=== PATIENT | female | born 1965 | race American Indian/Alaskan Native ===

== ENCOUNTER 2017-01-27 16:05 | Emergency (ER) | payer SELFPAY ==
--- NOTE | 2017-01-27 16:52 | Emergency Department Report ---
Chief Complaint: Nausea/Vomiting/Diarrhea Stated Complaint: VOMITING/DIARRHEA/BODY ACHES Time Seen by Provider: 01/27/17 16:43 - HPI History of Present Illness: PT reports multiple symptoms since Wednesday. PT c/o c/c/c, sore throat (feels dry from pollen), abd pain, and chest pressure. - ROS Review of Systems: + chest pressure - sob + diarrhea/ abd cramps - Exam Vital Signs: Vital Signs 01/27/17 16:41 Temperature 97.8 F Pulse Rate 103 H Respiratory 22 Rate Blood Pressure 105/63 O2 Sat by Pulse 100 Oximetry Physical Exam: obese female, no acute distress abd soft and non tender at this time. MSE screening note: Focused history and physical exam performed. Due to findings the following was ordered: ekg, xr, labs ED Disposition for MSE Condition: Stable
[2017-01-27 18:43] LABS: Alanine Aminotransferase 12 units/L (7-56); Albumin 3.5 g/dL (3.9-5); Albumin/Globulin Ratio 1.1 %; Alkaline Phosphatase 65 units/L (35-129); Anion Gap 16 mmol/L; BUN/Creatinine Ratio 6.25; Bilirubin,Total 0.4 mg/dL (0.1-1.2); Blood Urea Nitrogen 5 mg/dL (7-17); Calcium 8.4 mg/dL (8.4-10.2); Carbon Dioxide 25 mmol/L (22-30); Chloride 99.9 mmol/L (98-107); Glucose 116 mg/dL (65-100); Lipase 24 units/L (13-60); Potassium 4.5 mmol/L (3.6-5.0); Sodium 136 mmol/L (137-145); Total Protein 6.8 g/dL (6.3-8.2)
[2017-01-27 18:45] LABS: Eosinophils % (Auto) 0.5 % (0.0-4.3); Hematocrit 29.5 % (30.3-42.9); Hemoglobin 8.4 gm/dl (10.1-14.3); Mean Corpuscular HGB Conc 29 % (30-34); Mean Corpuscular Hemoglobin 19 pg (28-32); Mean Corpuscular Volume 65 fl (79-97); Platelet Count 344 K/mm3 (140-440); Red Blood Count 4.57 M/mm3 (3.65-5.03); Red Cell Distribution Width 19.5 % (13.2-15.2); White Blood Count 4.2 K/mm3 (4.5-11.0)
[2017-01-28] MEDS ORDERED: PEPCID IV ONE (03:28)
[2017-01-28] MEDS ORDERED: TORADOL IV ONE (03:28)
[2017-01-28] MEDS ORDERED: NACL 0.9% 1000 ML 1,000 ML IV ONE (03:28)
[2017-01-28] MEDS ORDERED: ZOFRAN IV ONE (03:28)
--- NOTE | 2017-01-28 04:38 | Cat Scan Report ---
FINAL REPORT PROCEDURE: CT ABDOMEN PELVIS WO CON TECHNIQUE: Computerized axial tomography of the abdomen and pelvis was performed without intravenous contrast. This study is performed without intravascular contrast material and its sensitivity for abdominal and pelvic pathology, including neoplasms, inflammation, abscess, free fluid, thrombosis, arterial dissection and infarction, is reduced compared with a contrast enhanced study. HISTORY: n,v,d fever COMPARISON: No prior studies are available for comparison. FINDINGS: Visualized lower thorax: No significant abnormality. Liver: Normal size and attenuation. There are calcifications in the right lobe of the liver suggesting old granulomas. Spleen: Normal size and attenuation. Gallbladder and biliary system: Normal. Pancreas: Normal. Adrenals: Normal. Kidneys: There are no kidney stones or ureteral stones. There is no hydronephrosis.. GI tract: There is no bowel obstruction, colitis or enteritis. The appendix is normal.. Lymph nodes and mesentery: Normal. Vasculature: Normal. Bladder: Normal. Reproductive organs: Uterine fundus is enlarged measuring 10 x 12 centimeters suggesting underlying fibroid. The ovaries are unremarkable. Peritoneum: There is no ascites, free air, abscess or adenopathy.. Musculoskeletal structures: No significant abnormality. Other: None. IMPRESSION: There are calcifications in the right lobe of the liver suggesting old granulomas. There are no kidney stones or ureteral stones. There is no hydronephrosis.. There is no bowel obstruction, colitis or enteritis. The appendix is normal.. Uterine fundus is enlarged measuring 10 x 12 centimeters suggesting underlying fibroid. The ovaries are unremarkable. There is no ascites, free air, abscess or adenopathy.. .
--- NOTE | 2017-01-28 05:09 | Emergency Department Report ---
ED N/V/D HPI - General Chief complaint: Nausea/Vomiting/Diarrhea Stated complaint: VOMITING/DIARRHEA/BODY ACHES Time Seen by Provider: 01/27/17 16:43 Source: patient Mode of arrival: Ambulatory Limitations: No Limitations - History of Present Illness Initial comments: 51-year-old female with a past medical history of GERD, uterine fibroids, spinal stenosis, anemia, and no previous abdominal surgical history presents to the hospital with complaints of nausea, vomiting, diarrhea, bodyaches, fever, cough and congestion 4 days. Patient will average vomits 2-3 times daily but no vomiting today. Patient is having significant diarrhea. She denies melena, hematochezia, hematemesis, sick contacts, or recent travel. MAXIMUM TEMPERATURE 101 at home and complains of fever intermittently. Patient complains of cough productive of clear sputum and chest tightness and pain with coughing episodes. Pain overall rated 8/10 intensity and worsened movement and palpation. She did not receive a flu shot this season. - Related Data Previous Rx's Medication Instructions Recorded Last Taken Type Famotidine [Pepcid] 20 mg PO BID #20 tablet 01/28/17 Unknown Rx Ferrous Sulfate [Feosol 325 MG tab] 325 mg PO QDAY #30 tablet 01/28/17 Unknown Rx Loperamide [Imodium] 2 mg PO Q2HR PRN #20 capsule 01/28/17 Unknown Rx Ondansetron [Zofran Odt] 4 mg PO Q8HR PRN #20 tab.rapdis 01/28/17 Unknown Rx traMADol [Ultram 50 MG tab] 50 mg PO Q6HR PRN #20 tablet 01/28/17 Unknown Rx Allergies Allergy/AdvReac Type Severity Reaction Status Date / Time Iodinated Contrast Media - AdvReac Rash Verified 01/28/17 03:52 IV Dye Penicillins AdvReac Unknown Verified 01/28/17 03:52 tomato AdvReac Unknown Verified 01/28/17 03:52 ED Review of Systems ROS: Stated complaint: VOMITING/DIARRHEA/BODY ACHES Other details as noted in HPI Comment: All other systems reviewed and negative Other: Constitutional: As per HPI Eyes: No eye pain visual changes ENT: No ear pain or throat pain Neck: Denies pain Respiratory: As per HPI Cardiovascular: Denies chest pain, palpitations, syncope GI: As per HPI : Denies dysuria Musculoskeletal: Generalized myalgias Skin: Denies rash, lesions, erythema Neurologic: Denies headache, numbness, weakness Psychiatric: Denies suicidal ideation, hallucinations ED Past Medical Hx - Past Medical History Hx Congestive Heart Failure: No Hx Diabetes: No Hx GERD: Yes Hx Asthma: No Hx COPD: No Hx HIV: No Additional medical history: Anemia, spinal stenosis, obesity, fibroids - Surgical History Past Surgical History?: No - Social History Smoking Status: Never Smoker Substance Use Type: Alcohol - Medications Home Medications: Home Medications Medication Instructions Recorded Confirmed Last Taken Type Famotidine [Pepcid] 20 mg PO BID #20 tablet 01/28/17 Unknown Rx Ferrous Sulfate [Feosol 325 MG tab] 325 mg PO QDAY #30 tablet 01/28/17 Unknown Rx Loperamide [Imodium] 2 mg PO Q2HR PRN #20 capsule 01/28/17 Unknown Rx Ondansetron [Zofran Odt] 4 mg PO Q8HR PRN #20 tab.rapdis 01/28/17 Unknown Rx traMADol [Ultram 50 MG tab] 50 mg PO Q6HR PRN #20 tablet 01/28/17 Unknown Rx ED Physical Exam - General Limitations: No Limitations - Other Other exam information: General: No limitations, patient is alert in no acute distress Head exam: Atraumatic, normocephalic Eyes exam: Normal appearance, pupils equal reactive to light, nonicteric sclerae ENT: Dry mucous membrane Neck exam: Normal inspection, full range of motion Respiratory exam: Clear to auscultation bilateral, no wheezes, rales, crackles Cardiovascular: Normal rate and rhythm, normal heart sounds. Increased heart rate noticed was sitting up in bed Abdomen: Soft, nondistended, lower abdominal tenderness, with normal bowel sounds, no rebound, or guarding Extremity: Full range of motion normal inspection no deformity Back: Normal Inspection, full range of motion, no tenderness Neurologic: Alert, oriented x3, cranial nerves intact, no motor or sensory deficit Psychiatric: normal affect, normal mood Skin: Warm, dry, intact ED Course Vital Signs 01/27/17 01/28/17 01/28/17 16:41 02:53 02:59 Temperature 97.8 F 98.6 F Pulse Rate 103 H 94 H 97 H Respiratory 22 22 20 Rate Blood Pressure 105/63 105/61 Blood Pressure 105/61 [Left] O2 Sat by Pulse 100 100 100 Oximetry 01/28/17 01/28/17 01/28/17 03:00 03:10 03:20 Temperature Pulse Rate 87 88 90 Respiratory 11 L 14 21 Rate Blood Pressure 105/61 119/66 119/66 Blood Pressure [Left] O2 Sat by Pulse 100 97 98 Oximetry 01/28/17 01/28/17 01/28/17 03:30 03:40 03:50 Temperature Pulse Rate 88 86 84 Respiratory 16 14 12 Rate Blood Pressure 119/66 127/73 Blood Pressure [Left] O2 Sat by Pulse 99 100 98 Oximetry 01/28/17 01/28/17 01/28/17 04:16 04:20 04:30 Temperature Pulse Rate 86 Respiratory 15 14 Rate Blood Pressure 127/73 112/61 132/68 Blood Pressure [Left] O2 Sat by Pulse 97 97 98 Oximetry 01/28/17 01/28/17 01/28/17 04:40 04:50 05:00 Temperature Pulse Rate 84 87 79 Respiratory 13 13 12 Rate Blood Pressure 132/68 132/68 114/62 Blood Pressure [Left] O2 Sat by Pulse 100 98 97 Oximetry 01/28/17 01/28/17 05:10 05:20 Temperature Pulse Rate 90 79 Respiratory 16 14 Rate Blood Pressure 114/62 114/62 Blood Pressure [Left] O2 Sat by Pulse 98 98 Oximetry - Reevaluation(s) Reevaluation #1: 01/28/17 05:08 Patient treated with Zofran, Toradol, Pepcid, and 1 L normal saline. ED Medical Decision Making - Lab Data Result diagrams: 01/27/17 18:12 01/27/17 18:12 Lab Results 01/27/17 01/27/17 Range/Units 18:12 18:12 WBC 4.2 L (4.5-11.0) K/mm3 RBC 4.57 (3.65-5.03) M/mm3 Hgb 8.4 L (10.1-14.3) gm/dl Hct 29.5 L (30.3-42.9) % MCV 65 L (79-97) fl MCH 19 L (28-32) pg MCHC 29 L (30-34) % RDW 19.5 H (13.2-15.2) % Plt Count 344 (140-440) K/mm3 Lymph % (Auto) 37.6 H (13.4-35.0) % Hardeman % (Auto) 11.1 H (0.0-7.3) % Eos % (Auto) 0.5 (0.0-4.3) % Baso % (Auto) 1.0 (0.0-1.8) % Lymph # 1.6 (1.2-5.4) K/mm3 Hardeman # 0.5 (0.0-0.8) K/mm3 Eos # 0.0 (0.0-0.4) K/mm3 Baso # 0.0 (0.0-0.1) K/mm3 Seg Neutrophils % 49.8 (40.0-70.0) % Seg Neutrophils # 2.1 (1.8-7.7) K/mm3 Sodium 136 L (137-145) mmol/L Potassium 4.5 (3.6-5.0) mmol/L Chloride 99.9 (98-107) mmol/L Carbon Dioxide 25 (22-30) mmol/L Anion Gap 16 mmol/L BUN 5 L (7-17) mg/dL Creatinine 0.8 (0.7-1.2) mg/dL Estimated GFR > 60 ml/min BUN/Creatinine Ratio 6.25 % Glucose 116 H (65-100) mg/dL Calcium 8.4 (8.4-10.2) mg/dL Total Bilirubin 0.4 (0.1-1.2) mg/dL AST 28 (5-40) units/L ALT 12 (7-56) units/L Alkaline Phosphatase 65 (35-129) units/L Troponin T < 0.010 (0.00-0.029) ng/mL Total Protein 6.8 (6.3-8.2) g/dL Albumin 3.5 L (3.9-5) g/dL Albumin/Globulin Ratio 1.1 % Lipase 24 (13-60) units/L - EKG Data -: EKG Interpreted by Me (nsr [id number]) - EKG Data When compared to previous EKG there are: no significant change (compared to 02/22) - Radiology Data Radiology results: report reviewed (CT abdomen and pelvis noncontrast: No acute findings. Uterine fibroids. See report for incidental findings) - Medical Decision Making Patient's chronic anemia anemia likely secondary to iron deficiency given her low MCV. Patient's hemoglobin is stable compared to previous visits. CT does not show any acute infectious or surgical emergency. Chest x-ray is negative. Patient will be treated for viral syndrome symptomatically. Outpatient follow- up will be encouraged. flu neg - Differential Diagnosis gastroenteritis, influenza, pneumonia, diverticulitis, appendicitis Critical Care Time: No Critical care attestation.: If time is entered above; I have spent that time in minutes in the direct care of this critically ill patient, excluding procedure time. ED Disposition Clinical Impression: Iron deficiency anemia, Gastroenteritis, Viral syndrome Disposition: DISCHARGED TO HOME OR SELFCARE Is pt being admited?: No Does the pt Need Aspirin: No Condition: Stable Instructions: Gastroenteritis (ED), Viral Syndrome (ED), Iron Deficiency Anemia (ED) Additional Instructions: Take medications as prescribed. Return if symptoms worsen. Follow-up with the doctor or clinic provide Prescriptions: Famotidine [Pepcid] 20 mg PO BID #20 tablet Ferrous Sulfate [Feosol 325 MG tab] 325 mg PO QDAY #30 tablet Loperamide [Imodium] 2 mg PO Q2HR PRN #20 capsule PRN Reason: Diarrhea Ondansetron [Zofran Odt] 4 mg PO Q8HR PRN #20 tab.rapdis PRN Reason: Nausea And Vomiting traMADol [Ultram 50 MG tab] 50 mg PO Q6HR PRN #20 tablet PRN Reason: Pain Referrals: [facility] [Provider Group] - 3-5 Days (Primary care clinic) NISREEN SERRANO MD [Staff Physician] - 3-5 Days (Primary care doctor) Time of Disposition: 05:39
[2017-01-28 05:35] VITALS: BP 114/62
--- NOTE | 2017-01-28 07:26 | XRay Report ---
ROUTINE CHEST, TWO VIEWS: HISTORY: chest pain. The trachea, heart, mediastinal contour, lung su and bony thorax are unremarkable. IMPRESSION: Unremarkable chest x-ray. No significant change since 03/17/16.
== END 2017-01-28 06:01 | disposition home or self-care (01) ==
LOC: ED 16:05
DX: K52.89 Other specified noninfective gastroenteritis and colitis (principal); D50.9 Iron deficiency anemia, unspecified; B34.9 Viral infection, unspecified; K21.9 Gastro-esophageal reflux disease without esophagitis; Z88.0 Allergy status to penicillin; Z91.018 Allergy to other foods; Z88.8 Allergy status to other drugs, medicaments and biological substances
CPT/HCPCS: 36415; 71020; 74176; 80053; 83690; 84484; 85025; 87400; 93005; 93010; 96361; 96374; 96375; 99284; J1885; J2405; J7030

== ENCOUNTER 2018-04-06 06:07 | Observation (INO) | payer OTHER ==
--- NOTE | 2018-03-31 12:40 | Anesthesia Consultation ---
Anesthesia Consult and Med Hx Date of service: 04/06/18 - Airway Anesthetic Teeth Evaluation: Chipped ROM Head & Neck: Inadequate Mental/Hyoid Distance: Adequate Mallampati Class: Class III Intubation Access Assessment: Possibly Difficult - Pulmonary Exam CTA: Yes - Cardiac Exam Cardiac Exam: RRR - Pre-Operative Health Status ASA Pre-Surgery Classification: ASA3 Proposed Anesthetic Plan: General Nerve Block: TAP - Pulmonary Hx Smoking: Yes (Former) Hx Asthma: No COPD: No Hx Pneumonia: No Hx Sleep Apnea: Yes (Not severe enough for a CPAP) - Central Nervous System Hx Back Pain: Yes (Cervical spinal stenosis; Sciatica R hip) Hx Psychiatric Problems: No - Gastrointestinal Hx Gastroesophageal Reflux Disease: Yes - Endocrine Hx End Stage Renal Disease: No - Hematic Hx Anemia: Yes - Other Systems Hx Alcohol Use: Yes (occas) Hx Cancer: No Hx Obesity: Yes
[2018-03-31 12:54] LABS: Basophils # (Auto) 0.1 K/mm3 (0.0-0.1); Basophils % (Auto) 1.2 % (0.0-1.8); Eosinophils # (Auto) 0.1 K/mm3 (0.0-0.4); Eosinophils % (Auto) 1.3 % (0.0-4.3); Hemoglobin 8.8 gm/dl (10.1-14.3); Lymphocytes # (Auto) 2.1 K/mm3 (1.2-5.4); Lymphocytes % (Auto) 29.8 % (13.4-35.0); Mean Corpuscular HGB Conc 29 % (30-34); Monocytes # (Auto) 0.5 K/mm3 (0.0-0.8); Monocytes % (Auto) 7.9 % (0.0-7.3); Platelet Count 485 K/mm3 (140-440); Red Blood Count 4.42 M/mm3 (3.65-5.03); Red Cell Distribution Width 18.7 % (13.2-15.2)
[2018-03-31 12:55] LABS: Mean Corpuscular Hemoglobin 20 pg (28-32); Mean Corpuscular Volume 68 fl (79-97)
[2018-03-31 14:22] LABS: BUN/Creatinine Ratio 17; Blood Urea Nitrogen 10 mg/dL (7-17); Calcium 8.4 mg/dL (8.4-10.2); Hemolysis Index 1
[2018-04-06] MEDS ORDERED: NACL 0.9% 500 ML 500 ML IV ONE (06:44)
--- NOTE | 2018-04-06 06:53 | History and Physical Report ---
History of Present Illness Date of examination: 04/06/18 Date of admission: 04/06/2018 Chief complaint: leiomyoma History of present illness: 53y/o with abnormal uterine bleeding and dysmenorrhea secondary to leiomyoma. The patient has anemia secondary to her menorrhagia. Pelvic ultrasound demonstrates findings of 4 myomas with the largest being 5cm. She has elected for surgical management. Past History Past Medical History: other (anemia; leiomyoma) Past Surgical History: other (BTL) Social history: single - Obstetrical History : 4 Para: 2 Hx # Term Pregnancies: 2 Spontaneous Abortions: 2 Number of Living Children: 2 Medications and Allergies Allergies Allergy/AdvReac Type Severity Reaction Status Date / Time Penicillins Allergy Swelling Verified 03/31/18 10:24 Iodinated Contrast- Oral and AdvReac Rash Verified 03/31/18 15:53 IV Dye tomato AdvReac Unknown Verified 03/31/18 15:53 Home Medications Medication Instructions Recorded Confirmed Last Taken Type Ferrous Sulfate [Feosol 325 MG tab] 325 mg PO QDAY #30 tablet 01/28/17 03/31/18 Unknown Rx Acetaminophen/Codeine [Tylenol 1 tab PO Q6H PRN 03/31/18 03/31/18 Unknown History /Codeine # 3 tab] Cyclobenzaprine [Flexeril] 10 mg PO TID PRN 03/31/18 03/31/18 Unknown History Ranitidine HCl [Zantac 150 MG TAB] 150 mg PO DAILY 03/31/18 03/31/18 Unknown History Active Meds: Active Medications Clindamycin HCl (Cleocin 600 Mg/50 Ml) 600 mg in 50 mls @ 100 mls/hr IV PREOP ANA; Protocol Gentamicin Sulfate 160 mg/ (Sodium Chloride) 104 mls @ 200 mls/hr IV PREOP ANA ; Protocol Review of Systems All systems: negative Genitourinary: vaginal bleeding, pelvic pain - Vital Signs Vital signs: Vital Signs Temp Pulse Resp BP 98.5 F 84 18 144/82 03/31/18 12:10 03/31/18 12:10 03/31/18 12:10 03/31/18 12:10 Temp Pulse Resp BP Pulse Ox 98.5 F 84 18 144/82 03/31/18 12:10 03/31/18 12:10 03/31/18 12:10 03/31/18 12:10 - Physical Exam Breasts: Positive: deferred Cardiovascular: Regular rate Lungs: Positive: Clear to auscultation Abdomen: Positive: normal appearance Results Result Diagrams: 03/31/18 12:20 03/31/18 12:20 All other labs normal. Assessment and Plan - Patient Problems (1) Leiomyoma Current Visit: Yes Status: Acute Plan to address problem: scheduled for a robotic hysterectomy and BSO (2) Iron deficiency anemia Current Visit: No Status: Acute (3) Menorrhagia Current Visit: No Status: Chronic
[2018-04-06] MEDS ORDERED: GARAMYCIN 160 MG in NACL 0.9% 100 ML IV NR (07:00)
[2018-04-06] MEDS ORDERED: CLEOCIN 600 MG/50 mL 600 MG/50 ML BAG IV SCH (07:00)
[2018-04-06] MEDS ORDERED: VERSED IV NR (07:33)
[2018-04-06] MEDS ORDERED: SUBLIMAZE IV NR (07:33)
[2018-04-06] MEDS ORDERED: NACL 0.9% 1000 ML 1,000 ML IV SCH (07:34)
[2018-04-06] MEDS ORDERED: DIPRIVAN 10 MG/ML IV ONE (07:40)
[2018-04-06] MEDS ORDERED: SUBLIMAZE ONE (07:40)
[2018-04-06] MEDS ORDERED: ZOFRAN ONE (07:42)
[2018-04-06] MEDS ORDERED: DECADRON ONE (07:42)
[2018-04-06] MEDS ORDERED: NEOSTIGMINE ONE (07:42)
[2018-04-06] MEDS ORDERED: ZEMURON IV ONE (07:42)
[2018-04-06] MEDS ORDERED: ROBINUL ONE ×2 (07:42)
[2018-04-06] MEDS ORDERED: BRETHINE ONE (07:42)
[2018-04-06] MEDS ORDERED: XYLOCAINE MPF 2% ONE (07:42)
[2018-04-06] MEDS ORDERED: THROMBIN (BOVINE) TP ONE ×2 (07:46→09:30)
[2018-04-06] MEDS ORDERED: GELFOAM POWDER 1GM MM ONE ×2 (07:46→09:30)
[2018-04-06] MEDS ORDERED: NEOSPORIN GU IR ONE ×2 (07:47→09:30)
[2018-04-06] MEDS ORDERED: QUELICIN ONE (08:00)
[2018-04-06] MEDS ORDERED: NACL 0.9% IR ONE ×2 (09:30)
[2018-04-06] MEDS ORDERED: NARCAN 0.4 MG/1 ML IV PRN (10:00)
[2018-04-06] MEDS ORDERED: MORPHINE PCA 30MG/30ML IV SCH (10:00)
--- NOTE | 2018-04-06 10:00 | Operative Report ---
Operative Report Operative Report: Date of surgery: 04/06/2018 Preoperative diagnoses: Symptomatic uterine fibroids; menorrhagia; iron deficiency anemia Postoperative diagnoses: Same as above Procedure: Robotic hysterectomy and bilateral salpingo-oophorectomy Surgeon: Lia Griggs M.D. Glass Cutting Machine Feeder: Shayla Mcdermott Anesthesia: Gen. endotracheal anesthesia Estimated blood loss: 50 mL Pathology: Uterus, cervix, leiomyomas, bilateral tubes and ovaries Indication: 53-year-old 0-2 with a history of symptomatic uterine fibroids. The patient is experienced significant dysfunctional uterine bleeding that is subsequently contributing to her iron deficiency anemia. Patient was transfused 1 unit of packed red cells blood cells preoperatively. Procedure: The patient was taken to the operating room and given general endotracheal anesthesia without complication. She is prepped and draped in a normal sterile fashion. A bivalve speculum was placed in the patient's vagina and a single- tooth tenaculum placed on the anterior lip of the cervix. The uterus was sounded with the uterine sound. A Unmetric uterine manipulator was placed in the bivalve speculum was then removed. Attention was then turned to the patient's abdomen where a 12 millimeter supra umbilical skin incision was then made. A Veress needle was placed and peritoneal entry was verified water-filled syringe. Insufflation of the peritoneal cavity was performed with CO2 gas. The 12 mm trocar was then placed under direct visualization. An additional 8 mm trocar was placed on the patient's left and right lateral side just opposite of the supraumbilical trocar. An additional 5 mm right lateral trocar was then placed as the accessory port. The Esau Alexander device was used to close the fascia of the 12 mm incision. The patient was then placed in steep Trendelenburg. The da Angel robot was then engaged. A fenestrated forcep was placed in arm 2 and a vessel sealer was placed in arm 1. The surgeon then transferred to the surgical console. General survey of the patient's abdomen and pelvis revealed a significantly enlarged fibroid uterus. The tubes and ovaries were normal in appearance. The infundibulopelvic ligament was then isolated on the right. The vessel sealer was used to coagulate the ligament which was then transected. The tube and ovary were transected from the supply. The round ligament was then coagulated and transected also. The vesicouterine peritoneum was then entered from the patient's right side. The uterine vessels were then coagulated with the vessel sealer. The vessels were then transected . Attention was then turned to the patient's left side where the infundibulopelvic ligament and mesosalpinx were again isolated coagulated and transected. The vesical peritoneum was then entered from the left and joined in the midline. Peritoneum was reflected off of the lower uterine segment. Uterine vessels were then coagulated and then transected. The blood supply to the uterus was adequately contained, a posterior colpotomy was made. The V care ring was visualized. Secondary to the large size of the uterus, a myomectomy had to be performed with removal of 3 leiomyomas. Incision was made over the serosa with the monopolar scissors. The fibroid was then grasped with a single-tooth tenaculum. The surrounding tissue was excised with the monopolar scissors. Posterior colpotomy was created with the monopolar scissors. The incision was continued circumferentially until anterior colpotomy was made. The cervix and uterus were amputated from the vaginal cuff. The uterus was then removed along with the leiomyomas, tubes and ovaries bilaterally through the vagina and a warm laparotomy sponge was placed and maintain the pneumoperitoneum. The vaginal cuff was then closed in a running fashion with V lock suture. Irrigation of the pelvis was performed. Gelfoam with thrombin was applied to the incision. The skin was then reapproximated with 4-0 Monocryl. The tissue was sent to pathology which included the cervix, uterus, tubes and ovaries. The patient was then successfully extubated. She was then taken to the recovery room in stable condition. All sponge laps and needle counts were correct x2.
[2018-04-06] MEDS ORDERED: TYLENOL PO PRN (10:01)
[2018-04-06] MEDS ORDERED: MOTRIN PO PRN (10:01)
[2018-04-06] MEDS ORDERED: PERCOCET 5/325 PO PRN (10:01)
[2018-04-06] MEDS ORDERED: AMBIEN PO PRN (10:01)
[2018-04-06] MEDS ORDERED: ZOFRAN IV PRN (10:01)
[2018-04-06] MEDS: TORADOL IV SCH ×2 (16:15→21:18)
[2018-04-06] MEDS ORDERED: HEPARIN SUB-Q SCH (17:15)
[2018-04-06] MEDS: D5LR 1,000 ML IV SCH (17:45)
[2018-04-07] MEDS: D5LR 1,000 ML IV SCH (03:06)
[2018-04-07] MEDS: TORADOL IV SCH ×2 (03:08→09:40)
[2018-04-07 04:20] LABS: Hematocrit 28.4 % (30.3-42.9); Hemoglobin 8.5 gm/dl (10.1-14.3)
--- NOTE | 2018-04-07 13:34 | Progress Note ---
Assessment and Plan - Patient Problems (1) Leiomyoma Current Visit: Yes Status: Acute Plan to address problem: patient doing well routine postop care (2) Iron deficiency anemia Current Visit: No Status: Acute (3) Menorrhagia Current Visit: No Status: Chronic Subjective - Subjective Date of service: 04/07/18 Interval history: Patient reports tolerating her clear diet. She has been out of bed. Pain is controlled Patient reports: appetite normal, voiding normally, pain well controlled Objective - Vital Signs Latest vital signs: Vital Signs Temp Pulse Resp BP BP BP Pulse Ox 04/07/18 09:30 16 04/07/18 08:00 16 04/07/18 05:06 18 04/07/18 04:30 98.4 F 68 20 99/48 95 04/07/18 03:00 20 04/07/18 01:21 18 04/07/18 00:00 99.1 F 71 20 105/54 04/06/18 23:22 20 04/06/18 21:12 18 04/06/18 20:49 98.7 F 69 20 118/60 96 04/06/18 19:30 20 100 04/06/18 18:05 16 04/06/18 14:30 98.1 F 79 20 122/76 100 Intake and Output 04/06/18 04/07/18 04/07/18 22:59 06:59 14:59 Intake Total 120 1240 180 Output Total 700 700 200 Balance -580 540 -20 Intake: IV 1000 D5lr 1,000 ml @ 125 mls/ 1000 hr IV DIRECT PENDING SALE TO [facility] Rx#: [id number] Oral 180 Intake, Free Water 120 240 Output: Urine 700 700 200 Indwelling Catheter 700 700 Void 200 Other: Total, Intake Amount 180 Total, Output Amount 350 700 200 Voiding Method Indwelling Catheter Indwelling Catheter Toilet - Exam Abdomen: Present: normal appearance, soft Incision: Present: normal - Labs Labs: Abnormal lab results 04/06/18 04/07/18 Range/Units 07:15 03:12 Hgb 8.5 L (10.1-14.3) gm/dl Hct 28.4 L (30.3-42.9) % Crossmatch See Detail
--- NOTE | 2018-04-07 13:37 | Discharge Summary ---
Providers - Providers Date of Admission: 04/06/18 10:01 Date of discharge: 04/07/18 Attending physician: GORAN MAR Primary care physician: SHEN HANSON Hospitalization Reason for admission: other (symptomatic fibroids) Procedure: other (robotic hysterectomy and BSO) Discharge diagnosis: other (Uterine fibroids) Hospital course: Patient was admitted the day of surgery and underwent a robotic hysterectomy/ BSO. See op note. Postoperative course uneventful. Condition at discharge: Good Disposition: DC-01 TO HOME OR SELFCARE - Discharge Diagnoses (1) Leiomyoma Status: Acute (2) Iron deficiency anemia Status: Acute Comment: due to menorrhagia from uterine fibroid (3) Menorrhagia Status: Chronic Plan - Discharge Medications Prescriptions: Docusate Sodium [Colace] 100 mg PO BID PRN #60 capsule PRN Reason: Constipation Ferrous Sulfate [Feosol 325 MG tab] 325 mg PO BID #60 tablet Ibuprofen [Motrin] 800 mg PO Q8HR PRN #60 tablet PRN Reason: Pain Oxycodone HCl/Acetaminophen [Percocet 7.5/325 mg] 1 each PO Q6HR PRN #45 tablet PRN Reason: Pain - Provider Discharge Summary Activity: no sex for 6 weeks, no heavy lifting 4 weeks, no strenuous exercise Diet: routine Instructions: routine Additional instructions: [] Smoking cessation referral if applicable(refer to patient education folder for contact #) [] Refer to [facility] Booklet Call your doctor immediately for: * Fever > 100.5 * Heavy vaginal bleeding ( >1 pad per hour) * Severe persistent headache * Shortness of breath * Reddened, hot, painful area to leg or breast * Drainage or odor from incision. * Keep incision clean and dry at all times and follow doctor's instructions regarding bathing/showering followup with Dr Mahmood in 4 weeks - Follow up plan
[2018-04-07 14:43] VITALS: BP 103/52
== END 2018-04-07 16:45 | disposition home or self-care (01) ==
LOC: OR 06:07 → OB 10:01
PROVIDERS: ADMIT Obstetrics & Gynecology; ATTEND Obstetrics & Gynecology
DX: D21.9 Benign neoplasm of connective and other soft tissue, unspecified (principal); D50.0 Iron deficiency anemia secondary to blood loss (chronic); N92.0 Excessive and frequent menstruation with regular cycle
CPT/HCPCS: 36415; 36430; 58554; 64450; 80048; 84703; 85014; 85018; 85025; 86850; 86900; 86901; 86920; 88307; 94760; 96374; 96375; 96376; A4217; A4649; G0378; J0330; J1100; J1580; J1644; J1885; J2250; J2270; J2405; J2704; J2710; J3010; J7030; J7121; P9016; J3105

== ENCOUNTER 2018-07-05 15:04 | Outpatient (CLI) | payer OTHER ==
--- NOTE | 2018-07-05 17:40 | Cat Scan Report ---
FINAL REPORT EXAM: CT ABDOMEN PELVIS WO CON HISTORY: LOWER BACK PAIN TECHNIQUE: CT abdomen and pelvis without contrast PRIORS: None. FINDINGS: No acute abnormality identified in the lung bases. No focal abnormality identified within the liver parenchyma. The spleen demonstrates normal size and attenuation. No pancreatic abnormalities seen. Kidneys demonstrate no evidence of hydronephrosis or nephrolithiasis. No ureteral calculus identified. The adrenal glands are unremarkable. Abdominal aorta is normal in caliber. No pathologically enlarged lymph nodes are identified. No signs of free fluid or free air No evidence of small bowel dilatation. The appendix is identified and is normal in size no adjacent inflammatory change seen. Urinary bladder is unremarkable. There is degenerative change at L5-S1 with small vacuum disc present. There are some marginal vertebral body osteophytes lumbar and lower thoracic spine. There is disc space narrowing with vacuum disc at T12-L1. There is disc space narrowing with posterior osteophyte at L1-L2. IMPRESSION: Thoracolumbar degenerative disc changes as noted above Otherwise negative study
== END 2018-07-05 15:05 | disposition home or self-care (01) ==
LOC: CT 15:04
PROVIDERS: ATTEND Obstetrics & Gynecology
DX: M47.895 Other spondylosis, thoracolumbar region (principal); R10.2 Pelvic and perineal pain; K21.9 Gastro-esophageal reflux disease without esophagitis; M19.90 Unspecified osteoarthritis, unspecified site; E66.01 Morbid (severe) obesity due to excess calories; Z68.41 Body mass index [BMI] 40.0-44.9, adult; Z87.891 Personal history of nicotine dependence
CPT/HCPCS: 74176

== ENCOUNTER 2020-03-13 14:59 | Emergency (ER) | payer SELFPAY ==
[2020-03-13 15:46] LABS: BUN/Creatinine Ratio 6; Blood Urea Nitrogen 5 mg/dL (7-17); Calcium 9.3 mg/dL (8.4-10.2); Hemolysis Index 15
--- NOTE | 2020-03-13 15:50 | XRay Report ---
CHEST PA AND LATERAL VIEWS INDICATION: Chest Pain. COMPARISON: None. FINDINGS: Support devices: None. Heart: Within normal limits. Lungs/Pleura: No consolidation or effusion. No pneumothorax. There appears to be mild peribronchial c uffing. IMPRESSION: 1. Mild peribronchial cuffing which could be seen in the setting of lower airways disease, correlate clinically. Signer Name: Jens West MD Signed: 03/13/2020 3:46 PM Workstation Name: [id number]
[2020-03-13 15:52] LABS: Basophils # (Auto) 0.1 K/mm3 (0.0-0.1); Basophils % (Auto) 0.8 % (0.0-1.8); Eosinophils # (Auto) 0.2 K/mm3 (0.0-0.4); Eosinophils % (Auto) 2.4 % (0.0-4.3); Hematocrit 46.6 % (30.3-42.9); Hemoglobin 15.6 gm/dl (10.1-14.3); Lymphocytes # (Auto) 2.3 K/mm3 (1.2-5.4); Lymphocytes % (Auto) 31.5 % (13.4-35.0); Mean Corpuscular HGB Conc 33 % (30-34); Mean Corpuscular Volume 90 fl (79-97); Monocytes # (Auto) 0.4 K/mm3 (0.0-0.8); Monocytes % (Auto) 5.8 % (0.0-7.3); Platelet Count 334 K/mm3 (140-440); Red Blood Count 5.16 M/mm3 (3.65-5.03); Red Cell Distribution Width 13.6 % (13.2-15.2)
--- NOTE | 2020-03-13 16:45 | Emergency Department Report ---
ED General Adult HPI - General Chief complaint: Chest Pain Stated complaint: CHEST PRESSURE/SOB PUI?: No Time Seen by Provider: 03/13/20 16:25 Source: patient Mode of arrival: Ambulatory Limitations: No Limitations - History of Present Illness Initial comments: Patient is a 54-year-old female that presents emergency room with complaints of chest pain, shortness of breath, cough, fever. Patient states that her chest pain or shortness of breath been going on for 1 month. Patient states that her chest pain shortness of breath with intermittent for 2 weeks and in the last 2 weeks it has been more constant. Patient states that her cough and fever have been going on for 2 weeks. Patient states it is a productive cough with yellow sputum. Patient states she was tested for COVID last Wednesday and it was negative. Patient states that her shortness of breath is unchanged by rest or movement. Patient states there are no factors that modify her shortness of breath. Patient states that her chest pain is a 8 out of 10 and it is worse with palpation and movement. Patient states that her chest pain is better with rest. Patient describes her chest pain as a pressure. Patient states she has been off of her acid reflux medications for 3 months. Patient states she is taking her medications for her anemia. -: Sudden Location: chest Severity scale (0 -10): 8 Quality: other Consistency: constant Improves with: rest Worsens with: movement Associated Symptoms: chest pain, cough, fever/chills, malaise. denies: confusion, diaphoresis, headaches, loss of appetite, nausea/vomiting, rash, seizure, shortness of breath, syncope, weakness Treatments Prior to Arrival: none - Related Data Home Medications Medication Instructions Recorded Confirmed Last Taken Acetaminophen/Codeine [Tylenol 1 tab PO Q6H PRN 03/31/18 03/31/18 04/05/18 /Codeine # 3 tab] Cyclobenzaprine [Flexeril] 10 mg PO TID PRN 03/31/18 03/31/18 04/05/18 raNITIdine HCl [Zantac 150 MG TAB] 150 mg PO DAILY 03/31/18 03/31/18 04/05/18 Previous Rx's Medication Instructions Recorded Last Taken Type Ferrous Sulfate [Feosol 325 MG tab] 325 mg PO QDAY #30 tablet 01/28/17 04/05/18 Rx Docusate Sodium [Colace] 100 mg PO BID PRN #60 capsule 04/07/18 Unknown Rx Ferrous Sulfate [Feosol 325 MG tab] 325 mg PO BID #60 tablet 04/07/18 Unknown Rx Ibuprofen [Motrin] 800 mg PO Q8HR PRN #60 tablet 04/07/18 Unknown Rx Oxycodone HCl/Acetaminophen 1 each PO Q6HR PRN #45 tablet 04/07/18 Unknown Rx [Percocet 7.5/325 mg] Doxycycline Hyclate [Doxycycline 100 mg PO Q12HR 10 Days #20 tab 03/13/20 Unknown Rx Hyclate TAB] Esomeprazole Magnesium [NexIUM] 40 mg PO QDAY #30 capsule. 03/13/20 Unknown Rx guaiFENesin/CODEINE [Robitussin AC] 5 ml PO Q6HR PRN #120 ml 03/13/20 Unknown Rx Allergies Allergy/AdvReac Type Severity Reaction Status Date / Time Iodinated Contrast Media Allergy Rash Verified 04/06/18 11:21 Penicillins Allergy Swelling Verified 03/31/18 10:24 tomato AdvReac Unknown Verified 03/31/18 15:53 ED Review of Systems ROS: Stated complaint: CHEST PRESSURE/SOB Other details as noted in HPI Constitutional: chills, fever, malaise Eyes: denies: eye pain, eye discharge, vision change ENT: denies: ear pain, throat pain Respiratory: cough, shortness of breath. denies: SOB with exertion, wheezing Cardiovascular: chest pain. denies: palpitations Endocrine: no symptoms reported Gastrointestinal: denies: abdominal pain, nausea, diarrhea Genitourinary: denies: urgency, dysuria, discharge Musculoskeletal: denies: back pain, joint swelling, arthralgia Skin: denies: rash, lesions Neurological: denies: headache, weakness, paresthesias Psychiatric: denies: anxiety, depression Hematological/Lymphatic: denies: easy bleeding, easy bruising ED Past Medical Hx - Past Medical History Previous Medical History?: Yes Hx Congestive Heart Failure: No Hx Diabetes: No Hx GERD: Yes Hx Arthritis: Yes (?type? Being tested now) Hx Headaches / Migraines: Yes (Migraines) Hx Asthma: No Hx COPD: No Hx HIV: No Additional medical history: Anemia, spinal stenosis, obesity, fibroids - Surgical History Past Surgical History?: Yes Additional Surgical History: hysterectomy. tubal ligation - Family History Family history: no significant - Social History Smoking Status: Never Smoker Substance Use Type: None - Medications Home Medications: Home Medications Medication Instructions Recorded Confirmed Last Taken Type Ferrous Sulfate [Feosol 325 MG tab] 325 mg PO QDAY #30 tablet 01/28/17 03/31/18 04/05/18 Rx Acetaminophen/Codeine [Tylenol 1 tab PO Q6H PRN 03/31/18 03/31/18 04/05/18 History /Codeine # 3 tab] Cyclobenzaprine [Flexeril] 10 mg PO TID PRN 03/31/18 03/31/18 04/05/18 History raNITIdine HCl [Zantac 150 MG TAB] 150 mg PO DAILY 03/31/18 03/31/18 04/05/18 History Docusate Sodium [Colace] 100 mg PO BID PRN #60 capsule 04/07/18 Unknown Rx Ferrous Sulfate [Feosol 325 MG tab] 325 mg PO BID #60 tablet 04/07/18 Unknown Rx Ibuprofen [Motrin] 800 mg PO Q8HR PRN #60 tablet 04/07/18 Unknown Rx Oxycodone HCl/Acetaminophen 1 each PO Q6HR PRN #45 tablet 04/07/18 Unknown Rx [Percocet 7.5/325 mg] Doxycycline Hyclate [Doxycycline 100 mg PO Q12HR 10 Days #20 tab 03/13/20 Unknown Rx Hyclate TAB] Esomeprazole Magnesium [NexIUM] 40 mg PO QDAY #30 capsule.dr 03/13/20 Unknown Rx guaiFENesin/CODEINE [Robitussin AC] 5 ml PO Q6HR PRN #120 ml 03/13/20 Unknown Rx ED Physical Exam - General Limitations: No Limitations General appearance: alert, in no apparent distress - Head Head exam: Present: atraumatic, normocephalic - Eye Eye exam: Present: normal appearance - ENT ENT exam: Present: mucous membranes moist - Neck Neck exam: Present: normal inspection - Respiratory Respiratory exam: Present: normal lung sounds bilaterally, chest wall tenderness. Absent: respiratory distress, wheezes - Cardiovascular Cardiovascular Exam: Present: regular rate, normal rhythm. Absent: systolic murmur, diastolic murmur, rubs, gallop - GI/Abdominal GI/Abdominal exam: Present: soft, normal bowel sounds. Absent: distended, t enderness - Extremities Exam Extremities exam: Present: normal inspection - Back Exam Back exam: Present: normal inspection - Neurological Exam Neurological exam: Present: alert, oriented X3 - Psychiatric Psychiatric exam: Present: normal affect, normal mood - Skin Skin exam: Present: warm, dry, intact, normal color. Absent: rash ED Course Vital Signs 03/13/20 03/13/20 03/13/20 15:01 15:06 15:55 Temperature 97.7 F 97.7 F Pulse Rate 103 H 95 H 75 Respiratory 18 17 Rate Blood Pressure 131/79 131/79 O2 Sat by Pulse 97 93 Oximetry 03/13/20 03/13/20 03/13/20 16:00 16:16 16:30 Temperature Pulse Rate 76 77 76 Respiratory 13 14 12 Rate Blood Pressure 129/78 129/78 137/83 O2 Sat by Pulse 95 96 98 Oximetry - Reevaluation(s) Reevaluation #1: I discussed all results and clinical findings with patient. I discussed plan of care with patient. Patient agrees with plan of care. Patient is stable for discharge. Patient will be discharged home. Patient given discharge instructions. Patient voiced understanding of discharge instructions. 03/13/20 17:50 ED Medical Decision Making - Lab Data Result diagrams: 03/13/20 15:16 03/13/20 15:16 - EKG Data -: EKG Interpreted by Me EKG shows normal: sinus rhythm, axis, intervals, QRS complexes, ST-T waves Rate: normal - Radiology Data Radiology results: report reviewed, image reviewed CHEST PA AND LATERAL VIEWS INDICATION: Chest Pain. COMPARISON: None. FINDINGS: Support devices: None. Heart: Within normal limits. Lungs/Pleura: No consolidation or effusion. No pneumothorax. There appears to be mild peribronchial cuffing. IMPRESSION: 1. Mild peribronchial cuffing which could be seen in the setting of lower airways disease, correlate clinically. - Medical Decision Making Patient is a 54-year-old female that presents emergency room with complaints of chest pain or shortness of breath x1 month and cough and fever x2 weeks. Patient was afebrile in the ER. Patient has already had a COVID test which was negative. Patient's labs are unremarkable. Patient chest x-ray shows a mild bronchitis. Patient treated with doxycycline and a cough syrup. Patient also given a prescription for acid reflux medication since she has not been on a GERD medication for 3 months. Patient is stable for discharge. Patient does not require inpatient therapy. Patient's vital signs are stable. - Differential Diagnosis Bronchitis, cough, pneumonia, chest pain, chest wall pain, SOB Critical care attestation.: If time is entered above; I have spent that time in minutes in the direct care of this critically ill patient, excluding procedure time. ED Disposition Clinical Impression: Chest wall pain, SOB (shortness of breath) Chest pain Qualifiers: Chest pain type: unspecified Qualified Code(s): R07.9 - Chest pain, unspecified Acute bronchitis Qualifiers: Bronchitis organism: unspecified organism Qualified Code(s): J20.9 - Acute bronchitis, unspecified Disposition: - TO HOME OR SELFCARE Is pt being admited?: No Does the pt Need Aspirin: No Condition: Stable Instructions: Chest Pain (ED), Acute Bronchitis (ED) Additional Instructions: Patient to follow-up with primary care in 2 to 3 days. Patient to rest. Patient to increase water. Patient to take Tylenol or ibuprofen as needed for pain. Patient to take meds as directed. Patient to return to the ER if condition worsens, changes or new symptoms arise. Prescriptions: Doxycycline Hyclate [Doxycycline Hyclate TAB] 100 mg PO Q12HR 10 Days #20 tab Esomeprazole Magnesium [NexIUM] 40 mg PO QDAY #30 capsule.dr Chirinos/CODEINE [Robitussin AC] 5 ml PO Q6HR PRN #120 ml PRN Reason: Cough Referrals: SHEN HANSON [Primary Care Provider] - 2-3 Days Time of Disposition: 17:40
[2020-03-13 17:57] VITALS: BP 134/81
== END 2020-03-13 17:57 | disposition home or self-care (01) ==
LOC: ED 14:59
DX: J20.9 Acute bronchitis, unspecified (principal); R07.89 Other chest pain; R06.02 Shortness of breath; K21.9 Gastro-esophageal reflux disease without esophagitis; M19.91 Primary osteoarthritis, unspecified site; G43.909 Migraine, unspecified, not intractable, without status migrainosus; D64.9 Anemia, unspecified; Z79.899 Other long term (current) drug therapy; Z88.0 Allergy status to penicillin; Z91.018 Allergy to other foods; Z88.8 Allergy status to other drugs, medicaments and biological substances; Z79.1 Long term (current) use of non-steroidal anti-inflammatories (NSAID); Z90.710 Acquired absence of both cervix and uterus; Z98.51 Tubal ligation status
CPT/HCPCS: 36415; 71046; 80048; 84484; 85025; 93005